=== PATIENT | male | born 1975 | race Asian ===

== ENCOUNTER 2022-08-02 09:28 | Outpatient (REF) | payer OTHER, SELFPAY ==
[2022-08-02 11:49] LABS: MANUAL DIFF FLAG NO
[2022-08-02 11:59] LABS: Basophils Absolute Auto 0.1 X10*3/uL (0.0-0.2); Eosinophils Absolute Auto 0.2 X10*3/uL (0.0-0.4); Hematocrit 44.2 % (42.0-52.0); Hemoglobin 15.6 g/dl (14.0-18.0); Imm Gran Abs Auto 0.01 X10*3/uL (0.00-0.03); Imm Gran Pct Auto 0.2 % (0.0-0.4); Lymphocytes Absolute Auto 1.9 X10*3/uL (1.2-4.9); Lymphocytes Percent Auto 31.1 % (20-40); Mean Corpuscular HGB Conc 35.3 g/dl (31.0-36.0); Mean Corpuscular Hemoglobin 31.1 pg (27.0-33.0); Mean Platelet Volume 11.9 fL (9.4-12.4); Monocytes Absolute Auto 0.5 X10*3/uL (0.1-1.2); Monocytes Percent Auto 8.7 % (2-11); Neutrophils Absolute Auto 3.4 x10*3/uL (2.0-8.3); Platelet Count 201 X10*3/uL (160-400); Red Blood Count 5.02 X10*6/uL (4.60-5.80); Red Cell Distribution Width 12.1 % (11.0-16.0)
[2022-08-02 12:21] LABS: Alanine Aminotransferase 17 U/L (0-40); Albumin Level 4.3 g/dL (3.5-5.0); Alkaline Phosphatase 50 U/L (39-117); Anion Gap 13 (12-20); Aspartate Amino Transferase 17 U/L (5-37); Bilirubin Total 0.6 mg/dL (0.0-1.0); Blood Urea Nitrogen 18 mg/dL (9-16); Calcium 9.3 mg/dL (8.4-10.2); Carbon Dioxide 29 mmol/L (22-29); Chloride 103 mmol/L (96-108); Cholesterol 227 mg/dL; Estimated Glomerular Filt Rate > 60; Glucose Fasting 106 mg/dL (60-99); HDL Cholesterol 52 mg/dL; LDL Cholesterol Calculated 157 mg/dl; Potassium 4.4 mmol/L (3.3-5.1); Sodium 141 mmol/L (135-145); Total Protein 7.3 g/dL (6.5-8.0); Triglycerides 94 mg/dL
[2022-08-06 16:51] LABS: Vitamin D 25-OH, D2 <4 ng/mL; Vitamin D 25-OH, D3 20 ng/mL; Vitamin D 25-OH, Total 20 ng/mL (30-100)
== END 2022-08-02 09:29 | disposition home or self-care (01) ==
LOC: HO.CHCLDS 09:28
PROVIDERS: Visit Provider Internal Medicine
DX: Z00.01 Encounter for general adult medical examination with abnormal findings (principal); J45.998 Other asthma; M25.562 Pain in left knee; R09.81 Nasal congestion
CPT/HCPCS: 36415; 80053; 80061; 82306; 85025

== ENCOUNTER 2022-11-30 10:34 | Outpatient (AMB) | payer OTHER, SELFPAY ==
--- NOTE | 2022-11-30 10:47 | A.OFFPC_ITS ---
Vital Signs 11/30/22 10:51 Height 5 ft 7 in Weight 138 lb BMI 21.6 BP 124/70 Blood Pressure Location Lt brachial Position Sitting Pulse 98 Pulse Source Pulse Oximeter Pulse Oximetry (%) 98 Oxygen Delivery Method Room Air Intake Visit Reasons: Neck pain (W[place] f/u 11/21) Intake Note: Pt is here today to f/u from walkin for neck pain Allergies No Known Allergies Allergy (Verified 04/29/24 16:08) Medication List - Last Reconciled 11/30/22 by Vonad Lerner MD albuterol sulfate 90 mcg/actuation (Proair Digihaler) 2 inhalations inhalation Q4-6H PRN amoxicillin-pot clavulanate 875-125 mg 1 tab PO Q12H 10 days Tobacco use date assessed: 11/30/22 HPI Neck pain (WI f/u 11/21) HPI Details Visit conducted with the help of a [place] vocational director. 48-year-old male here today for follow-u p after recent visit at the walk-in clinic, complaining of neck pain , which has been present now for the last week. Patient states that he was cleaning his house the day prior to symptoms starting. Denies any radiation of pain, no accompanying numbness or tingling in extremities, no lightheadedness. He was diagnosed to have muscular strain and prescribed cyclobenzaprine and advised to ibuprofen as needed for pain control. He now presents, however, with painful mass on posterior neck, no drainage, which just developed several days ago. PENDING SALE TO [facility] Medical History Pure hypercholesterolemia Asthma Surgical History No pertinent past surgical history Social History Housing: House Alcohol intake: never Patient Tobacco Use Status: Never used Tobacco e-Cigarette/Vaping Use: Never Used Second Hand Smoke Exposure: No service: No Current occupational status: employed Cognitive needs: No Hearing needs: No Vision needs: Yes Questionnaire AUDIT C Alcohol Use Questionnaire (AUDIT-C) 1. How often do you have a drink containing alcohol?: Never Total Score: 0 Review of Systems Const All systems reviewed & are unremarkable except as noted in HPI and below Physical exam (Primary Care) Vital Signs: Last Vital Signs Pulse 98 11/30/22 10:51 BP 124/70 11/30/22 10:51 Pulse Ox 98 11/30/22 10:51 Oxygen Delivery Method Room Air 11/30/22 10:51 BMI result Body Mass Index 21.6 Tobacco/Smoking Status: Tobacco use Status Tobacco use date assessed 11/30/22 11/30/22 10:56 e-Cigarette/Vaping Use Never Used 11/30/22 10:48 Const General: comfortable and no acute distress HENMT Head: Yes normocephalic and Yes atraumatic Neck Other: Decreased range of motion on lateral movement of cervical spine Skin Other: Soft fluctuant tender nodular mass on posterior neck area, no active drainage Assessment and Plan Assessment & Plan (1) Neck mass: Code(s): R22.1 - Localized swelling, mass and lump, neck Plan: CBC with differential ordered, will treat with amoxicillin clavulanic acid 875- 125 mg per tablet to take 1 tablet every 12 hours with food for 10 days. Apply warm compress over affected area. Advised patient to call in be seen again if lesion does not completely resolve Orders: Orders Complete Blood Count Auto Diff 11/30/22 M79.89 - Other specified soft tissue disorders Medications: New amoxicillin-pot clavulanate 875-125 mg 1 tab PO Q12H 20 tabs 0RF 10 days Coding Level of Care Code Est Pt Level 3 (06103) Diagnoses Neck mass R22.1
[2022-11-30 10:51] VITALS: BP 124/70; PULSE 98; O2SAT 98; BMI 21.6
== END 2022-11-30 11:51 | disposition home or self-care (01) ==
LOC: HO.HMGC 10:35
PROVIDERS: PCP Internal Medicine; Visit Provider Internal Medicine
DX: R22.1 Localized swelling, mass and lump, neck (principal)
CPT/HCPCS: 99499

== ENCOUNTER 2022-11-30 11:31 | Outpatient (REF) | payer OTHER, SELFPAY ==
[2022-11-30 13:57] LABS: MANUAL DIFF FLAG NO
[2022-11-30 14:16] LABS: Basophils Absolute Auto 0.1 X10*3/uL (0.0-0.2); Basophils Percent Auto 0.9 % (0-2); Eosinophils Absolute Auto 0.1 X10*3/uL (0.0-0.4); Eosinophils Percent Auto 1.4 % (0-4); Hematocrit 42.4 % (42.0-52.0); Hemoglobin 15.1 g/dl (14.0-18.0); Imm Gran Abs Auto 0.02 X10*3/uL (0.00-0.03); Imm Gran Pct Auto 0.3 % (0.0-0.4); Lymphocytes Absolute Auto 1.6 X10*3/uL (1.2-4.9); Mean Corpuscular HGB Conc 35.6 g/dl (31.0-36.0); Mean Corpuscular Hemoglobin 31.3 pg (27.0-33.0); Mean Platelet Volume 11.3 fL (9.4-12.4); Monocytes Absolute Auto 0.6 X10*3/uL (0.1-1.2); Monocytes Percent Auto 9.2 % (2-11); Neutrophils Absolute Auto 4.1 x10*3/uL (2.0-8.3); Neutrophils Percent Auto 63.2 % (45-73); Platelet Count 277 X10*3/uL (160-400); Red Blood Count 4.82 X10*6/uL (4.60-5.80); Red Cell Distribution Width 12.4 % (11.0-16.0); White Blood Count 6.5 X10*3/uL (4.8-10.8)
== END 2022-11-30 11:32 | disposition home or self-care (01) ==
LOC: HO.HMGCLDS 11:31
PROVIDERS: PCP Internal Medicine; Visit Provider Internal Medicine
DX: M79.89 Other specified soft tissue disorders (principal)
CPT/HCPCS: 36415; 85025

== ENCOUNTER 2023-01-02 15:57 | Outpatient (REF) | payer OTHER, SELFPAY ==
--- NOTE | ~2023-01-02 | XR_ITS ---
EXAMINATION: XR KNEE, LEFT CLINICAL INFORMATION: Pain. COMPARISON: None available. TECHNIQUE: Four views of the left knee. FINDINGS: Bones and soft tissues are normal. No fracture or joint effusion. Alignment is anatomic. Joint spaces are well maintained. No abnormal soft tissue calcification. XR/XR knee LT 3V IMPRESSION: Unremarkable left knee.
== END 2023-01-02 15:58 | disposition home or self-care (01) ==
LOC: HO.XRAY 15:57
PROVIDERS: PCP Internal Medicine; Visit Provider Internal Medicine
DX: M25.562 Pain in left knee (principal)
CPT/HCPCS: 73562

== ENCOUNTER → 2023-01-17 08:56 | Outpatient (BNVA) | payer OTHER, SELFPAY | PROVIDERS: PCP Internal Medicine; Referring Provider Internal Medicine; Visit Provider Surgery | DX: Z13.89 Encounter for screening for other disorder (principal) ==

== ENCOUNTER 2023-10-16 17:11 | Outpatient (AMB) | payer OTHER, SELFPAY ==
[2023-10-16 17:16] VITALS: BP 128/80; PULSE 75; O2SAT 99; BMI 22.1
--- NOTE | 2023-10-16 17:16 | A.OFFPC_ITS ---
Vital Signs 10/16/23 17:16 Height 5 ft 7 in Weight 141 lb 6 oz BMI 22.1 BP 128/80 Blood Pressure Location Lt brachial Position Sitting Pulse 75 Pulse Source Pulse Oximeter Pulse Oximetry (%) 99 Oxygen Delivery Method Room Air Intake Visit Reasons: Annual Exam Side Framer Required: No Accompanied by: Self / Same As Patient Allergies No Known Allergies Allergy (Verified 10/17/23 04:11) Medication List - Last Reconciled 10/17/23 by Sumit Vuong MD albuterol sulfate 90 mcg/actuation (Ventolin HFA) 2 puffs inhalation Q6H PRN 30 days Tobacco use date assessed: 10/16/23 Dental Screening Dental Screen Date: 10/16/23 Did you have a dental visit in the last 12 months?: Yes Did you have a dental problem in the last 6 months where you did not have access to dental care?: No Was dental information given to patient?: Patient has dentist HPI Annual Exam 2 HPI Details Patient comes in today for his annual physical examination States that he feels okay He continues to experience a clicking sensation in his left knee and states that his knee often feels like it will give out on him when he is walking Is wondering if his knee x-rays done last year showed anything to explain his symptoms He denies any headaches or dizziness Denies any chest pains, no shortness of breath - states that his asthma has been stable but he would like to get a refill on albuterol inhaler for PRN use No nausea/vomiting, no abdominal pain No change in bowel habits noted He denies any acute urinary symptoms States that he has never had a colonoscopy done in the past; is also inquiring if he needs to have an upper endoscopy done as well for screening purposes - states that he has not had any issues with acid reflux in the past Has no follow-up labs done recently [facility] Medical History Pure hypercholesterolemia Asthma Surgical History No pertinent past surgical history Social History (Updated 10/17/23 @ 04:36 by Sumit Vuong MD) Housing: House Patient Tobacco Use Status: Never used Tobacco e-Cigarette/Vaping Use: Never Used Current occupational status: employed Cognitive needs: No Hearing needs: No Vision needs: Yes Questionnaire PHQ-9 Over the last 2 weeks, how often have you been bothered by any of the following problems? 1. Little interest or pleasure in doing things: not at all 2. Feeling down, depressed, or hopeless: not at all 3. Trouble falling or staying asleep, or sleeping too much: not at all 4. Feeling tired or having little energy: not at all 5. Poor appetite or overeating: not at all 6. Feeling bad about yourself - or that you are a failure or have let yourself or your family down: not at all 7. Trouble concentrating on things, such as reading the newspaper or watching television: not at all 8. Moving or speaking so slowly that other people could have noticed. Or the opposite - being so fidgety or restless that you have been moving around a lot more than usual: not at all 9. Thoughts that you would be better off or of hurting yourself in some way: not at all Total score: 0 Depression Screening Interpretation: Negative Depression Screening Done: Yes 95424 - PHQ-9 Billing: Yes Source: Developed by Drs. Manuel Dempsey, Adele Galdamez, Prabhakar Barnes and colleagues, with an educational dick from [employer]. Thrive Questionnaire Date Thrive assessed: 10/16/23 I am a: Patient What is your living situation today?: I have a steady place to live Within the past 12 months, did the food you bought not last and you didn't have the money to get more?: Never true Within the past 12 months, did you worry whether your food would run out before you got money to buy more?: Never true Do you have trouble paying for medicines?: No Do you have trouble getting transportation to medical appointments?: No Do you have trouble paying your heating and electricity bill?: No Do you have trouble taking care of your child, family member or friend?: No Do you have trouble with day-to-day activities such as bathing, preparing meals, shopping, managing finances, etc.?: No Are you currently unemployed and looking for a job?: No Are you interested in more education?: No Please select the resources that you would like help with: None AUDIT C Alcohol Use Questionnaire (AUDIT-C) 1. How often do you have a drink containing alcohol?: Never Total Score: 0 Score Reviewed/Action Taken: Yes JULIA-7 AMB Questionnaire JULIA-7 Date JULIA - 7 assessed: 10/16/23 Feeling nervous, anxious, or on edge: 0 = Not at all Not being able to stop or control worryin = Not at all Worrying too much about different things: 0 = Not at all Trouble relaxin = Not at all Being so restless that it is hard to sit still: 0 = Not at all Becoming easily annoyed or irritable: 0 = Not at all Feeling afraid as if something awful might happen: 0 = Not at all Total JULIA-7 score (0-4 normal; 5-9 mild; 10-14 moderate; 15-21 severe): 0 Source: Developed by Drs. Manuel Dempsey, Adele Galdamez, Prabhakar Barnes and colleagues, with an educational dick from [employer]. Review of Systems Const Denies chills, Denies fatigue, Denies fever(s), Denies headache(s), Denies malaise and Denies weakness Eyes Denies blurry vision, Denies change in vision, Denies irritation and Denies itchy eyes ENT Denies dysphagia, Denies dizziness, Denies otalgia, Denies headache(s), Denies nasal congestion, Denies neck pain, Denies odynophagia and Denies sore throat Card Denies chest pain, Denies rapid heart rate, Denies irregular heart rhythm, Denies palpitations and Denies dyspnea Resp Denies chest congestion, Denies cough, Denies dyspnea and Denies wheezing GI Denies abdominal pain, Denies bloating, Denies constipation, Denies dysphagia, Denies heartburn, Denies diarrhea, Denies nausea, Denies odynophagia and Denies vomiting Denies hematuria, Denies difficulty urinating, Denies dysuria, Denies urinary frequency and Denies urinary urgency Musc Denies back pain, Denies arthralgias (but left knee frequently clicks and feels like it will give out on him), Denies joint swelling, Denies muscle weakness and Denies neck pain Skin/Breast Denies change in pigmentation, Denies lesions, Denies rash and Denies unusual bruising Neuro Denies dizziness, Denies headache(s), Denies paresthesias and Denies weakness Endo Denies fatigue and Denies palpitations Aller/Immun Denies itchy eyes and Denies wheezing Physical exam (Primary Care) Vital Signs: Last Vital Signs Pulse 75 10/16/23 17:16 BP 128/80 10/16/23 17:16 Pulse Ox 99 10/16/23 17:16 Oxygen Delivery Method Room Air 10/16/23 17:16 BMI result Body Mass Index 22.1 Tobacco/Smoking Status: Tobacco use Status Tobacco use date assessed 10/16/23 10/16/23 17:21 Patient Tobacco Use Status Never used Tobacco 10/16/23 17:21 Tobacco use type Cigarette 10/16/23 17:21 e-Cigarette/Vaping Use Never Used 10/16/23 17:21 PHQ-9: PHQ-9 Score PHQ-9: Total score 0 10/17/23 04:39 Depression Screening Interpretation: Negative Thrive Assessment: Date of Thrive Assessment Date Thrive assessed 10/16/23 10/16/23 17:21 Const General: no acute distress, alert and awake Orientation/consciousness: patient oriented x3 HENMT Head: Yes normocephalic and Yes atraumatic Ears: external ears normal, TM's normal bilaterally and EAC's normal General nose exam: No nasal discharge present Face and sinus: Yes normal facial exam and Yes sinuses nontender Teeth and gingiva: dentition normal Throat: Yes posterior oropharynx normal and Yes tonsils normal (no TP congestion) Eyes Eyelids: Yes eyelids normal Conjunctivae: conjunctivae normal Pupils: Equal, round and reactive pupils present EOM: EOMs intact bilaterally Neck Neck: Yes no lymphadenopathy and Yes supple Thyroid: Thyroid normal Resp Auscultation: clear to auscultation bilaterally, no rales and no wheezes Cardio Rate: regular rate Rhythm: regular rhythm Heart sounds: no murmurs GI Palpation (GI): Soft to palpation, nontender and No hepatosplenomegaly present Auscultation: normal bowel sounds General: Yes no CVA tenderness Back/Spine/Pelvis Back: no CVA tenderness Thoracic/Lumbar Spine: thoracic and lumbar spine normal to inspection Skin Other: (+) quarter-sized, non-tender cystic lesion on the back of the right side of the neck Lesions: no lesions Rashes: no rashes Neuro General: patient oriented x3, moves all extremities, no focal motor deficits and CN's II-XI intact bilaterally Cranial nerves: Yes Equal, round and reactive pupils present Cognition (Neuro): normal cognition Gait exam (Neuro): Normal gait present Extrem General: Yes no clubbing, cyanosis or edema Left lower extremity: knee Details: normal ROM; no tenderness and no swelling Assessment and Plan Assessment & Plan (1) Annual physical exam: Code(s): Z00.00 - Encounter for general adult medical examination without abnormal findings Plan: Check labs Patient has never had a screening colonoscopy done in the past so he will be referred for one (2) Pure hypercholesterolemia: Code(s): E78.00 - Pure hypercholesterolemia, unspecified Plan: He is again advised that his cholesterol was elevated on his labs done last year - will send him for repeat fasting lipids MADY for follow up Reinforced low cholesterol diet (3) Asthma: Code(s): J45.909 - Unspecified asthma, uncomplicated Qualifiers: Asthma complication type: uncomplicated Asthma persistence: intermittent Asthma severity: mild Qualified Code(s): J45.20 - Mild intermittent asthma, uncomplicated Plan: Stable Continue Albuterol HFA 1 to 2 inhalations Q 6 hours PRN although patient states that he hardly has to use his rescue inhaler normally (4) Neck mass: Code(s): R22.1 - Localized swelling, mass and lump, neck Plan: Is most likely a lipoma He was referred to and seen by surgery for this last year in December 2022 - was advised that they can remove the lesion surgically anytime but as patient has hardly had any symptoms related to this, have recommended observation for now and have surgical excision done only if the lipoma becomes symptomatic or gets significantly larger (5) Patellar instability of left knee: Code(s): M25.362 - Other instability, left knee Plan: X-rays of the left knee done last year came out normal Will refer patient to orthopedics for further evaluation and recommendations regarding management of his recurrent knee symptoms (6) Colon cancer screening: Code(s): Z12.11 - Encounter for screening for malignant neoplasm of colon Plan: Will refer patient for screening colonoscopy - has never had one done in the past Plan Follow up in 6 months Orders: Referrals Orthopedics Referral M25.362 - Other instability, left knee Gastroenterology Referral Z12.11 - Encounter for screening for malignant neoplasm of colon Medications: New albuterol sulfate 90 mcg/actuation (Ventolin HFA) 2 puffs inhalation Q6H 30 days PRN 8.5 grams 5RF shortness of breath or wheezing Coding Level of Care Code Est Pt Prev Care 40-64y(76653) Diagnoses Annual physical exam Z00.00 Pure hypercholesterolemia E78.00 Mild intermittent asthma without complication J45.20 Asthma complication type: uncomplicated Asthma persistence: intermittent Asthma severity: mild Neck mass R22.1 Patellar instability of left knee M25.362 Colon cancer screening Z12.11
== END 2023-10-16 17:57 | disposition home or self-care (01) ==
LOC: HO.HMGH 17:11
PROVIDERS: PCP Internal Medicine; Visit Provider Internal Medicine
DX: Z00.00 Encounter for general adult medical examination without abnormal findings (principal); E78.00 Pure hypercholesterolemia, unspecified; J45.20 Mild intermittent asthma, uncomplicated; R22.1 Localized swelling, mass and lump, neck; M25.362 Other instability, left knee; Z12.11 Encounter for screening for malignant neoplasm of colon
CPT/HCPCS: 99396

== ENCOUNTER 2023-10-23 10:47 | Outpatient (REF) | payer OTHER, SELFPAY ==
[2023-10-23 11:19] LABS: MANUAL DIFF FLAG NO
[2023-10-23 11:51] LABS: Basophils Absolute Auto 0.1 X10*3/uL (0.0-0.2); Basophils Percent Auto 1.3 % (0-2); Eosinophils Absolute Auto 0.2 X10*3/uL (0.0-0.4); Eosinophils Percent Auto 2.9 % (0-4); Hematocrit 42.6 % (42.0-52.0); Hemoglobin 15.1 g/dl (14.0-18.0); Imm Gran Abs Auto 0.01 X10*3/uL (0.00-0.03); Imm Gran Pct Auto 0.2 % (0.0-0.4); Lymphocytes Absolute Auto 1.8 X10*3/uL (1.2-4.9); Mean Corpuscular HGB Conc 35.4 g/dl (31.0-36.0); Mean Corpuscular Hemoglobin 31.3 pg (27.0-33.0); Mean Corpuscular Volume 88.2 fL (80.0-98.0); Mean Platelet Volume 12.1 fL (9.4-12.4); Monocytes Absolute Auto 0.5 X10*3/uL (0.1-1.2); Monocytes Percent Auto 8.8 % (2-11); Neutrophils Absolute Auto 3.1 x10*3/uL (2.0-8.3); Neutrophils Percent Auto 54.8 % (45-73); Platelet Count 175 X10*3/uL (160-400); Red Blood Count 4.83 X10*6/uL (4.60-5.80); Red Cell Distribution Width 12.3 % (11.0-16.0); White Blood Count 5.6 X10*3/uL (4.8-10.8)
[2023-10-23 12:23] LABS: Prostate Specific Antigen Scr 0.92 ng/mL (<0.05-4.0)
[2023-10-23 12:48] LABS: Alanine Aminotransferase 20 U/L (0-40); Albumin Level 4.1 g/dL (3.5-5.0); Alkaline Phosphatase 48 U/L (39-117); Anion Gap 11 (12-20); Aspartate Amino Transferase 17 U/L (5-37); Bilirubin Total 0.7 mg/dL (0.0-1.0); Blood Urea Nitrogen 15 mg/dL (9-16); Calcium 9.1 mg/dL (8.4-10.2); Carbon Dioxide 30 mmol/L (22-29); Chloride 104 mmol/L (96-108); Cholesterol 214 mg/dL (<200); Estimated Glomerular Filt Rate > 60; Glucose Fasting 100 mg/dL (60-99); HDL Cholesterol 58 mg/dL (>40); LDL Cholesterol Calculated 145 mg/dL (<100); Potassium 4.4 mmol/L (3.3-5.1); Sodium 141 mmol/L (135-145); TSH reflex Free T4 1.07 uIU/mL (0.32-4.0); Triglycerides 59 mg/dL (<150); Vitamin D 25-OH Total 25.3 ng/mL (>30)
[2023-10-23 12:54] LABS: Appearance Urine Clear; Color Urine Yellow; Glucose Urine UA Negative (Negative); Leukocyte Esterase Urine Negative (Negative); Nitrite Urine Negative (Negative); PH 8.5 (5.0-9.0); Specific Gravity - Urine 1.015 (1.005-1.025); Urine Blood Negative (Negative); Urine Ketones Negative (Negative); Urine Protein Negative (Neg-Trace)
== END 2023-10-23 10:48 | disposition home or self-care (01) ==
LOC: HO.LAB 10:47
PROVIDERS: PCP Internal Medicine; Visit Provider Internal Medicine
DX: Z00.00 Encounter for general adult medical examination without abnormal findings (principal); Z12.5 Encounter for screening for malignant neoplasm of prostate; R30.0 Dysuria; E55.9 Vitamin D deficiency, unspecified; E78.00 Pure hypercholesterolemia, unspecified
CPT/HCPCS: 36415; 80053; 80061; 81003; 82306; 84153; 84443; 85025

== ENCOUNTER 2024-04-29 14:27 | Outpatient (AMB) | payer OTHER, SELFPAY ==
--- NOTE | 2024-04-29 14:27 | MHC.PC.OV ---
Vital Signs 04/29/24 14:28 Height 5 ft 7 in Weight 138 lb BMI 21.6 BP 110/66 Blood Pressure Location Lt brachial Position Sitting Pulse 62 Pulse Source Pulse Oximeter Pulse Oximetry (%) 97 Oxygen Delivery Method Room Air Intake Visit Reasons: Bloody Nose Intake Note: Patient is here to follow up on Bloody nose on going for a year, mostly during winter time. Strap Sewer Required: No Director Transportation: Not Required per policy Accompanied by: Self / Same As Patient Allergies No Known Allergies Allergy (Verified 04/29/24 16:08) Medication List - Last Reconciled 04/29/24 by Sumit Vuong MD No Known Home Meds Tobacco use date assessed: 04/29/24 Dental Screening Dental Screen Date: 10/16/23 HPI Bloody Nose HPI Details Patient comes in today for further evaluation of recurrent nose bleeding from his right nostril States that his symptoms are often worse in the winter time, when he would literally wake up in the morning with bleeding from his right nostril Notes that his nose bleeds would usually last for just a few minutes before subsiding on their own Notes that he feels like there is something inside his right nostril as he would often have pressure-like sensation deep inside the right side of his nose He denies any headaches or dizziness No other acute complaints or issues are noted [facility] Medical History Pure hypercholesterolemia Asthma Surgical History No pertinent past surgical history Social History Housing: House Alcohol intake: never Patient Tobacco Use Status: Never used Tobacco e-Cigarette/Vaping Use: Never Used Second Hand Smoke Exposure: No service: No Current occupational status: employed Cognitive needs: No Hearing needs: No Vision needs: Yes Questionnaire Thrive Questionnaire Date Thrive assessed: 10/16/23 JULIA-7 AMB Questionnaire JULIA-7 Date JULIA - 7 assessed: 10/16/23 Source: Developed by Drs. Manuel Dempsey, Adele Galdamez, Prabhakar Barnes and colleagues, with an educational dick from [employer]. Review of Systems Const Denies chills, Denies fatigue, Denies fever(s) and Denies headache(s) ENT Denies dysphagia, Denies dizziness, Denies otalgia, Denies headache(s), Reports epistaxis (mostly from the right nostril, occurring more often in the winter - see HPI), Reports nasal congestion (frequent), Denies neck pain, Denies odynophagia, Denies sinus pain and Denies sore throat Card Denies chest pain, Denies palpitations and Denies dyspnea Resp Denies cough and Denies dyspnea GI Denies abdominal pain, Denies constipation, Denies dysphagia, Denies diarrhea, Denies nausea, Denies odynophagia and Denies vomiting Denies dysuria, Denies nocturia and Denies urinary frequency Musc Denies back pain and Denies neck pain Skin/Breast Denies rash Neuro Denies dizziness and Denies headache(s) Endo Denies fatigue and Denies palpitations Physical exam (Primary Care) Vital Signs: Last Vital Signs Pulse 62 04/29/24 14:28 BP 110/66 04/29/24 14:28 Pulse Ox 97 04/29/24 14:28 Oxygen Delivery Method Room Air 04/29/24 14:28 BMI result Body Mass Index 21.6 Tobacco/Smoking Status: Tobacco use Status Tobacco use date assessed 04/29/24 04/29/24 14:32 Patient Tobacco Use Status Never used Tobacco 04/29/24 14:32 Tobacco use type 10/23/23 10:47 e-Cigarette/Vaping Use Never Used 04/29/24 14:32 Thrive Assessment: Date of Thrive Assessment Date Thrive assessed 10/16/23 04/29/24 14:32 Const General: no acute distress and alert HENMT Ears: TM's normal bilaterally and EAC's normal General nose exam: Abnormal mucous membranes and turbinates present erythematous on the right Face and sinus: Yes sinuses nontender and Yes face symmetric Throat: Yes posterior oropharynx normal and Yes tonsils normal (no TP congestion) Neck Neck: Yes no lymphadenopathy and Yes supple Thyroid: Thyroid normal Resp Auscultation: clear to auscultation bilaterally, no rales and no wheezes Cardio Rate: regular rate Rhythm: regular rhythm Heart sounds: no murmurs GI Palpation (GI): Soft to palpation and nontender Auscultation: normal bowel sounds Extrem General: Yes no clubbing, cyanosis or edema Assessment and Plan Assessment & Plan (1) Recurrent epistaxis: Code(s): R04.0 - Epistaxis Plan: Have advised patient that his recurrent right-sided epistaxis is likely due to his chronic sinus allergies He does have chronic nasal /sinus congestion and has been prescribed steroid nasal sprays (Fluticasone) as well as oral antihistamines in the past with variable results / relief of his symptoms His exam today revealed (+) possible erythema and some congestion of the right nasal turbinates but have explained to him that our exam is basically a crude and rudimentary exam as we do not really have any dedicated nasal speculum or nasal endoscope to properly examine his nasal passages He does not appear to have any visible polyps at this time Due to his recurrent symptoms, I have recommended that he see ENT for further evaluation and management and to definitively r/o nasal polyps or other conditions that would increase his risks for recurrent epistaxis now and especially in the winter time Have advised him that he can continue on his nasal steroid spray and OTC oral antihistamines for now if he wants Plan To return as scheduled in October 2024 for his next annual physical examination Orders: Referrals Ear/Nose/Throat Referral R04.0 - Epistaxis Coding Level of Care Code Est Pt Level 3 (01769) Diagnoses Recurrent epistaxis R04.0
[2024-04-29 14:28] VITALS: BP 110/66; PULSE 62; O2SAT 97; BMI 21.6
== END 2024-04-29 15:14 | disposition home or self-care (01) ==
PROVIDERS: PCP Internal Medicine; Visit Provider Internal Medicine
DX: R04.0 Epistaxis (principal)
CPT/HCPCS: 99213

== ENCOUNTER 2024-10-21 13:36 | Outpatient (AMB) | payer OTHER, SELFPAY ==
[2024-10-21 13:50] VITALS: BP 100/76; PULSE 68; TEMP 36.2; O2SAT 96; BMI 22.1
--- NOTE | 2024-10-21 13:50 | MHC.PC.OV ---
Vital Signs 10/21/24 13:50 Height 5 ft 7 in Weight 141 lb 4 oz BMI 22.1 BP 100/76 Blood Pressure Location Lt brachial Position Sitting Pulse 68 Pulse Source Pulse Oximeter Temp 97.1 F Temp Source Temporal Artery Scan Pulse Oximetry (%) 96 Oxygen Delivery Method Room Air Intake Visit Reasons: pe Terminal Clerk Required: No Accompanied by: Self / Same As Patient Allergies No Known Allergies Allergy (Verified 10/21/24 14:10) Medication List - Last Reconciled 10/21/24 by Sumit Vuong MD No Known Home Meds Tobacco use date assessed: 10/21/24 Dental Screening Dental Screen Date: 10/21/24 Did you have a dental visit in the last 12 months?: Yes Did you have a dental problem in the last 6 months where you did not have access to dental care?: No Was dental information given to patient?: Patient has dentist HPI pe HPI Details Patient comes in today for his annual physical examination States that he feels okay He denies any headaches or dizziness States that he still has recurrent nasal drainage and congestion and is wondering if his right nasal polyps have gotten bigger lately States that he no longer has recurrent epistaxis like he used to have a few months ago He was referred to ENT previously for further evaluation and is scheduled to be seen in November 2024 He denies any chest pains, no SOB - states that his asthma is mostly well-controlled but he does not have any more Albuterol inhaler refills and needs Rx sent in today No nausea/vomiting, no abdominal pain No change in bowel habits noted He denies any acute urinary symptoms He was referred for screening colonoscopy last year but it does not look like he was ever seen by GI for this [facility] Medical History (Updated 10/21/24 @ 14:38 by Sumit Vuong MD) Patellar instability of left knee Vitamin D deficiency Pure hypercholesterolemia Asthma Surgical History No pertinent past surgical history Social History Housing: House Alcohol intake: never Patient Tobacco Use Status: Never used Tobacco e-Cigarette/Vaping Use: Never Used Second Hand Smoke Exposure: No service: No Current occupational status: employed Cognitive needs: No Hearing needs: No Vision needs: Yes Questionnaire PHQ-9 Over the last 2 weeks, how often have you been bothered by any of the following problems? 1. Little interest or pleasure in doing things: not at all 2. Feeling down, depressed, or hopeless: not at all 3. Trouble falling or staying asleep, or sleeping too much: not at all 4. Feeling tired or having little energy: not at all 5. Poor appetite or overeating: not at all 6. Feeling bad about yourself - or that you are a failure or have let yourself or your family down: not at all 7. Trouble concentrating on things, such as reading the newspaper or watching television: not at all 8. Moving or speaking so slowly that other people could have noticed. Or the opposite - being so fidgety or restless that you have been moving around a lot more than usual: not at all 9. Thoughts that you would be better off or of hurting yourself in some way: not at all Total score: 0 Depression Screening Interpretation: Negative Depression Screening Done: Yes 96366 - PHQ-9 Billing: Yes Source: Developed by Drs. Manuel Dempsey, Adele Galdamez, Prabhakar Barnes and colleagues, with an educational dick from [email or web address]. Thrive Questionnaire Date Thrive assessed: 10/21/24 I am a: Patient What is your living situation today?: I have a steady place to live Within the past 12 months, did the food you bought not last and you didn't have the money to get more?: I choose not to answer this question Within the past 12 months, did you worry whether your food would run out before you got money to buy more?: I choose not to answer this question Do you have trouble paying for medicines?: No Do you have trouble getting transportation to medical appointments?: No Do you have trouble paying your heating and electricity bill?: No Do you have trouble taking care of your child, family member or friend?: No Do you have trouble with day-to-day activities such as bathing, preparing meals, shopping, managing finances, etc.?: No Are you currently unemployed and looking for a job?: No Are you interested in more education?: I choose not to answer this question Please select the resources that you would like help with: None Currently or been in a relationship where the following occur: No concerns reported THRIVE Score: 0 AUDIT C Alcohol Use Questionnaire (AUDIT-C) 1. How often do you have a drink containing alcohol?: Never 3. How often do you have six or more drinks on one occasion?: Never Total Score: 0 Score Reviewed/Action Taken: Yes JULIA-7 AMB Questionnaire JULIA-7 Date JULIA - 7 assessed: 10/21/24 Feeling nervous, anxious, or on edge: 0 = Not at all Not being able to stop or control worryin = Not at all Worrying too much about different things: 0 = Not at all Trouble relaxin = Not at all Being so restless that it is hard to sit still: 0 = Not at all Becoming easily annoyed or irritable: 0 = Not at all Feeling afraid as if something awful might happen: 0 = Not at all Total JULAI-7 score (0-4 normal; 5-9 mild; 10-14 moderate; 15-21 severe): 0 Source: Developed by Drs. Manuel Dempsey, Adele Galdamez, Prabhakar Barnes and colleagues, with an educational dick from [email or web address]. Review of Systems Const Denies chills, Denies fatigue, Denies fever(s), Denies headache(s), Denies malaise and Denies weakness Eyes Denies blurry vision, Denies change in vision, Denies irritation and Denies itchy eyes ENT Denies dysphagia, Denies dizziness, Denies otalgia, Denies headache(s), Denies epistaxis (states that his previous recurrent epistaxis has resolved), Reports nasal congestion (recurrent, especially in the right nostril), Denies neck pain, Denies odynophagia and Denies sore throat Card Denies chest pain, Denies rapid heart rate, Denies irregular heart rhythm, Denies palpitations and Denies dyspnea Resp Denies chest congestion, Denies cough, Denies dyspnea and Denies wheezing GI Denies abdominal pain, Denies bloating, Denies constipation, Denies dysphagia, Denies heartburn, Denies diarrhea, Denies nausea, Denies odynophagia and Denies vomiting Denies hematuria, Denies difficulty urinating, Denies dysuria, Denies urinary frequency and Denies urinary urgency Musc Denies back pain, Reports arthralgias (recurrent in the left knee, mostly after prolonged standing), Denies joint swelling, Denies muscle weakness, Denies neck pain and Reports tingling (in the left foot at times, often with prolonged standing) Skin/Breast Denies change in pigmentation, Denies lesions, Denies rash and Denies unusual bruising Neuro Denies dizziness, Denies headache(s), Reports tingling (in the left foot at times, often with prolonged standing), Denies paresthesias and Denies weakness Endo Denies fatigue and Denies palpitations Aller/Immun Denies itchy eyes and Denies wheezing Physical exam (Primary Care) Vital Signs: Last Vital Signs Temp 97.1 F 10/21/24 13:50 Pulse 68 10/21/24 13:50 BP 100/76 10/21/24 13:50 Pulse Ox 96 10/21/24 13:50 Oxygen Delivery Method Room Air 10/21/24 13:50 BMI result Body Mass Index 22.1 Tobacco/Smoking Status: Tobacco use Status Tobacco use date assessed 10/21/24 10/21/24 13:53 Patient Tobacco Use Status Never used Tobacco 10/21/24 13:53 Tobacco use type 10/23/23 10:47 e-Cigarette/Vaping Use Never Used 10/21/24 13:53 PHQ-9: PHQ-9 Score PHQ-9: Total score 0 10/21/24 22:09 Depression Screening Interpretation: Negative Thrive Assessment: Date of Thrive Assessment Date Thrive assessed 10/21/24 10/21/24 13:53 Currently or been in a relationship where the following occur: No concerns reported Const General: no acute distress, alert and awake Orientation/consciousness: patient oriented x3 HENMT Head: Yes normocephalic and Yes atraumatic Ears: external ears normal, TM's normal bilaterally and EAC's normal General nose exam: No nasal discharge present and Abnormal mucous membranes and turbinates present erythematous bilateral Face and sinus: Yes normal facial exam and Yes sinuses nontender Teeth and gingiva: dentition normal Throat: Yes posterior oropharynx normal and Yes tonsils normal (no TP congestion) Eyes Eyelids: Yes eyelids normal Conjunctivae: conjunctivae normal Pupils: Equal, round and reactive pupils present EOM: EOMs intact bilaterally Neck Neck: Yes supple and No lymphadenopathy Thyroid: Thyroid normal Resp Auscultation: clear to auscultation bilaterally, no rales and no wheezes Cardio Rate: regular rate Rhythm: regular rhythm Heart sounds: no murmurs GI Palpation (GI): Soft to palpation, nontender and No hepatosplenomegaly present Auscultation: normal bowel sounds General: Yes no CVA tenderness Back/Spine/Pelvis Back: no CVA tenderness Thoracic/Lumbar Spine: thoracic and lumbar spine normal to inspection Skin Lesions: no lesions Rashes: no rashes Neuro General: patient oriented x3, moves all extremities, no focal motor deficits and CN's II-XI intact bilaterally Cranial nerves: Yes Equal, round and reactive pupils present Cognition (Neuro): normal cognition Gait exam (Neuro): Normal gait present Extrem General: Yes no clubbing, cyanosis or edema Left lower extremity: knee Details: tenderness Location: of the patella and of the pre-patellar area; no swelling Coding Level of Care Code Est Pt Prev Care 40-64y(15722) Diagnoses Annual physical exam Z00.00 Pure hypercholesterolemia E78.00 Mild intermittent asthma without complication J45.20 Asthma severity: mild Asthma persistence: intermittent Asthma complication type: uncomplicated Vitamin D deficiency E55.9 Patellar instability of left knee M25.362 Chronic nasal congestion R09.81 Colon cancer screening Z12.11 Additional Codes PHQ-9 - 33454 - PHQ-9 Billing: Yes ([id number]) Assessment & Plan Assessment & Plan (1) Annual physical exam: Code(s): Z00.00 - Encounter for general adult medical examination without abnormal findings Category: Medical Plan: Check labs (2) Pure hypercholesterolemia: Code(s): E78.00 - Pure hypercholesterolemia, unspecified Category: Medical Plan: Patient is reminded that his cholesterol levels were still elevated when he had his labs done back in October 2023, with total cholesterol at 214 mg/dl and LDL cholesterol at 145 mg/dl Reinforced low cholesterol diet Will send him for repeat fasting lipids and follow up labs MADY (3) Asthma: Code(s): J45.909 - Unspecified asthma, uncomplicated Category: Medical Qualifiers: Asthma severity: mild Asthma persistence: intermittent Asthma complication type: uncomplicated Qualified Code(s): J45.20 - Mild intermittent asthma, uncomplicated Plan: Stable Continue Albuterol HFA 1 to 2 inhalations Q 6 hours PRN (Rx refilled) - patient states that he rarely has to use his rescue inhaler (4) Vitamin D deficiency: Code(s): E55.9 - Vitamin D deficiency, unspecified Category: Medical Plan: Continue Vitamin D3 2000 units QD Will recheck his Vitamin D level for follow up (5) Patellar instability of left knee: Code(s): M25.362 - Other instability, left knee Category: Medical Plan: X-rays of patient's left knee done back in December 2022 came out normal He was provided with some instructions/information on knee exercises that he can do regularly to help strengthen his knee (and muscles) to help minimize his knee pain and related symptoms Follow up with orthopedics as scheduled (6) Chronic nasal congestion: Code(s): R09.81 - Nasal congestion Category: Medical Plan: He was previously referred to ENT for further evaluation of his recurrent epistaxis and chronic nasal congestion and he is scheduled to be seen sometime in November 2024 Patient states that his epistaxis has resolved and he has not had any nose bleeds for a few weeks/months now (7) Colon cancer screening: Code(s): Z12.11 - Encounter for screening for malignant neoplasm of colon Category: Medical Plan: Will refer patient again to GI for his screening colonoscopy Plan To return in 1 year for his next annual physical examination Orders: Orders TSH reflex Free T4 Today E78.00 - Pure hypercholesterolemia, unspecified, Z00.00 - Encounter for general adult medical examination without abnormal findings UA CC w/rflx Micro + Cult Today R30.0 - Dysuria, Z00.00 - Encounter for general adult medical examination without abnormal findings Vitamin B12 and Folate Today E53.8 - Deficiency of other specified B group vitamins, R20.0 - Anesthesia of skin, R20.2 - Paresthesia of skin Magnesium Today E83.42 - Hypomagnesemia, R20.0 - Anesthesia of skin, R20.2 - Paresthesia of skin Complete Blood Count Auto Diff Today D64.9 - Anemia, unspecified, Z00.00 - Encounter for general adult medical examination without abnormal findings Comprehensive [place]. Panel Fast Today E78.00 - Pure hypercholesterolemia, unspecified, Z00.00 - Encounter for general adult medical examination without abnormal findings Lipid Panel Today E78.00 - Pure hypercholesterolemia, unspecified, Z00.00 - Encounter for general adult medical examination without abnormal findings Vitamin D 25-OH Total Today E55.9 - Vitamin D deficiency, unspecified, Z00.00 - Encounter for general adult medical examination without abnormal findings Prostate Specific Antigen Scr Today Z00.00 - Encounter for general adult medical examination without abnormal findings Referrals Gastroenterology Referral Z12.11 - Encounter for screening for malignant neoplasm of colon Medications: New albuterol sulfate 90 mcg/actuation (Ventolin HFA) 2 puffs inhalation Q6H 30 days PRN 8.5 grams 5RF shortness of breath or wheezing
== END 2024-10-21 14:35 | disposition home or self-care (01) ==
PROVIDERS: PCP Internal Medicine; Visit Provider Internal Medicine
DX: Z00.00 Encounter for general adult medical examination without abnormal findings (principal); E78.00 Pure hypercholesterolemia, unspecified; J45.20 Mild intermittent asthma, uncomplicated; E55.9 Vitamin D deficiency, unspecified; M25.362 Other instability, left knee; R09.81 Nasal congestion; Z12.11 Encounter for screening for malignant neoplasm of colon

== ENCOUNTER → 2024-10-21 13:36 | Outpatient (BNVA) | payer OTHER, SELFPAY | PROVIDERS: PCP Internal Medicine; Visit Provider Internal Medicine | DX: Z00.00 Encounter for general adult medical examination without abnormal findings (principal); E78.00 Pure hypercholesterolemia, unspecified; J45.20 Mild intermittent asthma, uncomplicated; E55.9 Vitamin D deficiency, unspecified; M25.362 Other instability, left knee; R09.81 Nasal congestion | CPT/HCPCS: 96127 ==

== ENCOUNTER 2024-12-30 10:55 | Outpatient (REF) | payer OTHER, SELFPAY ==
[2024-12-30 11:11] LABS: MANUAL DIFF FLAG NO
[2024-12-30 11:30] LABS: Basophils Absolute Auto 0.1 X10*3/uL (0.0-0.2); Basophils Percent Auto 1.1 % (0-2); Eosinophils Absolute Auto 0.2 X10*3/uL (0.0-0.4); Hemoglobin 15.5 g/dl (14.0-18.0); Imm Gran Abs Auto 0.01 X10*3/uL (0.00-0.03); Imm Gran Pct Auto 0.2 % (0.0-0.4); Lymphocytes Absolute Auto 1.9 X10*3/uL (1.2-4.9); Lymphocytes Percent Auto 33.7 % (20-40); Mean Corpuscular Hemoglobin 31.3 pg (27.0-33.0); Mean Corpuscular Volume 86.7 fL (80.0-98.0); Mean Platelet Volume 11.5 fL (9.4-12.4); Monocytes Absolute Auto 0.6 X10*3/uL (0.1-1.2); Monocytes Percent Auto 10.5 % (2-11); Neutrophils Absolute Auto 2.9 x10*3/uL (2.0-8.3); Neutrophils Percent Auto 51.5 % (45-73); Platelet Count 189 X10*3/uL (160-400); Red Blood Count 4.96 X10*6/uL (4.60-5.80); Red Cell Distribution Width 12.1 % (11.0-16.0); White Blood Count 5.6 X10*3/uL (4.8-10.8)
[2024-12-30 11:57] LABS: Appearance Urine Clear; Color Urine Yellow; Glucose Urine UA Negative (Negative); Leukocyte Esterase Urine Negative (Negative); Nitrite Urine Negative (Negative); PH 8.5 (5.0-9.0); Specific Gravity - Urine 1.015 (1.005-1.025); Urine Blood Negative (Negative); Urine Ketones Negative (Negative); Urine Protein Negative (Neg-Trace)
[2024-12-30 12:21] LABS: Alanine Aminotransferase 24 U/L (0-40); Alkaline Phosphatase 46 U/L (39-117); Anion Gap 9 (12-20); Aspartate Amino Transferase 22 U/L (5-37); Bilirubin Total 0.8 mg/dL (0.0-1.0); Blood Urea Nitrogen 17 mg/dL (9-16); Calcium 8.7 mg/dL (8.4-10.2); Carbon Dioxide 32 mmol/L (22-29); Chloride 105 mmol/L (96-108); Cholesterol 225 mg/dL (<200); Estimated Glomerular Filt Rate > 60; Glucose Fasting 101 mg/dL (60-99); HDL Cholesterol 56 mg/dL (>40); LDL Cholesterol Calculated 153 mg/dL (<100); Magnesium 2.3 mg/dL (1.6-2.6); Potassium 4.2 mmol/L (3.3-5.1); Sodium 142 mmol/L (135-145); Triglycerides 84 mg/dL (<150)
--- OUTSIDE RECORDS SUMMARY | 2024-12-30 12:24 | XMS_ITS | Clinical Summary ---
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 Name Role Phone Unavailable Primary Care Provider Unavailabl e Social History Tobacco Use Types Packs/Day Years Used Date Smoking Tobacco: Never Assessed Sex and Gender Information Value Date Recorded Sex Assigned at Male 08/01/2022 10:23 AM EDT Legal Sex Male 10:23 AM EDT Gender Identity Male 08/01/2022 10:23 AM EDT Sexual Orientation Straight 08/01/2022 10 :23 AM EDT Plan of Treatment Health Maintenance Due Date Last Done Comments CT Colonography 1974 Colonoscopy 1974 Colorectal Cancer Screening 1974 Depression Screening 1974 FIT DNA/Cologuard 1974 FIT 1974 FOBT 1974 Lipid Panel 1974 Sigmoidoscopy 1974 Alcohol/Substance Use Screening 1986 Tobacco Screening 1986 Family Planning (PISQ) 1989 Hepatitis B Vaccines (1 of 3 - 19+ 3-dose series) 1993 DTaP/Tdap/Td Vaccines (1 - Tdap) 06/27/2017 06/26/2017 COVID-19 Vaccine ( - 2023-2 5 season) 2024 Influenza Vaccine (#1) 2024 9, 09/03/2018, 06/26/2017 Pneumococcal Vaccine: 50+ Years (1 of 1 - PCV) 2024 Zoster Vaccines (1 of 2) 2024 RSV Patients and Patients Aged 60 years or older (1 - 1-dose 75+ series) 2049 HIB Vaccines Aged Out No longer eligi ble based on patient's age to complete this topic HPV Vaccines Aged Out No longer eligi ble based on patient's age to complete this topic Hepatitis A Vaccines Aged Out No long er eligible based on patient's age to complete this topic IPV Vaccines Aged Out No longer eligi ble based on patient's age to complete this topic Meningococcal Vaccine Aged Out No gabriel tresa eligible based on patient's age to complete this topic Pneumococcal Vaccine: Pediatrics (0 to 5 Years) and At-Risk Patients (6 to 49) Years) Aged Out No longer eligible b ased on patient's age to complete this topic RSV under 20 months Aged Out No longe r eligible based on patient's age to complete this topic Rotavirus Vaccines Aged Out No longer eligible based on patient's age to complete this topic
--- OUTSIDE RECORDS SUMMARY | 2024-12-30 12:24 | XMS_ITS | Encounter Summary ---
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 Name Role Phone Unavailable Primary Care Provider Unavailabl e Encounter Details Date Type Department Care Team (Latest Contact Info) Description 02/26/2019 Abstract [facility] CONVERSIONS Dental, Provider, DDS Social History Tobacco Use Types Packs/Day Years Used Date Smoking Tobacco: Never Assessed Sex and Gender Information Value Date Recorded Sex Assigned at Male 08/01/2022 10:23 AM EDT Legal Sex Male 10:23 AM EDT Gender Identity Male 08/01/2022 10:23 AM EDT Sexual Orientation Straight 08/01/2022 10 :23 AM EDT documented as of this encounter Plan of Treatment Not on file documented as of this encounter Visit Diagnoses Not on filedocumented in this encounter
[2024-12-30 12:37] LABS: TSH reflex Free T4 1.04 uIU/mL (0.32-4.0); Vitamin D 25-OH Total 35.4 ng/mL (>30)
[2024-12-30 12:48] LABS: Folate 9.7 ng/mL (> or = 4.0); Vitamin B12 711 pg/mL (200-900)
== END 2024-12-30 10:56 | disposition home or self-care (01) ==
LOC: HO.LAB 10:55
PROVIDERS: PCP Internal Medicine; Visit Provider Internal Medicine
DX: Z00.00 Encounter for general adult medical examination without abnormal findings (principal); R30.0 Dysuria; E53.8 Deficiency of other specified B group vitamins; R20.0 Anesthesia of skin; R20.2 Paresthesia of skin; E78.00 Pure hypercholesterolemia, unspecified; E55.9 Vitamin D deficiency, unspecified; E83.42 Hypomagnesemia; D64.9 Anemia, unspecified; Z12.5 Encounter for screening for malignant neoplasm of prostate
CPT/HCPCS: 36415; 80053; 80061; 81003; 82306; 82607; 82746; 83735; 84153; 84443; 85025

== ENCOUNTER 2025-02-26 08:19 | Outpatient (AMB) | payer OTHER, SELFPAY ==
--- NOTE | 2025-02-26 08:20 | MHC.OFFWIV ---
Intake Vital Signs 02/26/25 08:21 Height 5 ft 7 in Weight 141 lb BMI 22.1 BP 110/70 Blood Pressure Location Lt brachial Position Sitting Pulse 68 Pulse Source Pulse Oximeter Temp 98.2 F Temp Source Oral Pulse Oximetry (%) 98 Oxygen Delivery Method Room Air Intake Visit Reasons: EP asthma, itchy throat Patient Tobacco Use Status: Never used Tobacco Assistant Professor Of Spanish Required: Yes Assistant Professor Of Spanish Language: Mandarin [place]ian Accompanied by: Self / Same As Patient Allergies No Known Allergies Allergy (Verified 02/26/25 08:21) Do you need a note to return to daycare/school/sports/work: No HPI HPI Comments History of Present Illness Details [place] Michael Bieker video park interpreter used for this visit. History - The patient is a 49-year-old male presenting with his son with a sore throat, sneezing, and itchy, watery eyes. - The sore throat has been present for a couple of weeks - Symptoms include sneezing and itchy, watery eyes, indicative of allergic rhinitis. - The patient has a known history of asthma, with albuterol inhaler use for relief during shortness of breath. - No fever has been reported. - Symptoms seem related to seasonal changes, suggesting exacerbation of allergies. Physical Exam General: Cooperative, healthy appearing, comfortable and no acute distress Orientation/consciousness: Patient oriented x3 Limitations: No limitations Head: Normal to inspection Ears: Hearing grossly normal bilaterally, external ears normal and TM's normal bilaterally Nose: Normal external nose present, Normal nares present and No nasal discharge present Face and sinus: Normal facial exam and Yes sinuses nontender Mouth: Normal oral and palatal mucosa present and moist mucous membranes Throat: Yes tonsils normal, Yes uvula midline. Posterior oropharynx erythema with cobblestoning Eyes: Appearance normal, both eyes and all related structures Neck: Normal visual inspection Respiratory: Clear to auscultation bilaterally. Normal respiratory effort, able to speak in complete sentences, Actively coughing, no respiratory distress, not tachypneic, no tripod positioning and no use of accessory muscles. History of asthma, uses an albuterol inhaler with relief, little bit of shortness of breath Cardiovascular: Regular rate and rhythm. Normal S1 and S2 Skin: No rashes or lesions noted Neuro: Patient oriented x3 Extremities: Normal to inspection and Yes no clubbing, cyanosis or edema [facility] Medical History (Updated 02/26/25 @ 09:12 by Leena Canales PA-C) Patellar instability of left knee Vitamin D deficiency Pure hypercholesterolemia Asthma Surgical History No pertinent past surgical history Social History Housing: House Alcohol intake: never Patient Tobacco Use Status: Never used Tobacco e-Cigarette/Vaping Use: Never Used Second Hand Smoke Exposure: No service: No Current occupational status: employed Cognitive needs: No Hearing needs: No Vision needs: Yes Review of Systems Const All systems reviewed & are unremarkable except as noted in HPI and below Physical Exam Vital Signs: Last Vital Signs Temp 98.2 F 02/26/25 08:21 Pulse 68 02/26/25 08:21 BP 110/70 02/26/25 08:21 Pulse Ox 98 02/26/25 08:21 Oxygen Delivery Method Room Air 02/26/25 08:21 BMI result Body Mass Index 22.1 Results AMB Rapid Strep AMB Rapid Strep Negative Last Edit by Con Islas CMA on 02/26/25 08:40 Results Reviewed Results Reviewed: Laboratory Last Values Strep Scn Rapid Clinic Negative 02/26/25 08:39 Assessment & Plan Assessment & Plan (1) Seasonal allergic reaction: Code(s): J30.2 - Other seasonal allergic rhinitis Plan: VSS, pt well appearing and PE remarkable for cobblestoning. Negative result for streptococcal infection. The patient presents with symptoms indicative of seasonal allergic rhinitis, and a seasonal allergy pill is recommended to manage the sore/itchy throat, itchy, watery eyes and sneezing. The symptoms correlate with seasonal changes, suggesting allergies as the primary cause. The patient should monitor the response to the allergy medication and continue using the albuterol inhaler as needed for asthma management. Observing symptom changes and seeking follow-up if necessary is advised for ongoing evaluation and care. Patient was informed and verbally consented to the use of an ambient scribe for clinic note documentation during this visit Orders: Orders AMB Rapid Strep Screen Today Z13.9 - Encounter for screening, unspecified Coding Level of Care Code Est Pt Level 3 (23331) Diagnoses Seasonal allergic reaction J30.2
[2025-02-26 08:21] VITALS: BP 110/70; PULSE 68; TEMP 36.8; O2SAT 98; BMI 22.1
--- OUTSIDE RECORDS SUMMARY | 2025-02-26 08:33 | XMS_ITS | Data Portability ---
Author Organization [place] [facility], Allergy Address [address] [facility] [address] [place] [id number] Assessment Encounter Date Assessment Date Assessment LastModified by Organization Details LastModified Time 12/23/2024 12/23/2024 Primary care noted a polyp on the right nose. On my examination anterior rhinoscopy was benign. No lesions to better explain his epistaxis or confirmation of a polyp. Given the description of his symptoms and nasal endoscopy was performed to evaluate for any additional causes of fluctuating nasal congestion and epistaxis. Fortunately only a grade 1 nasal polyp in the left sphenoethmoid region was identified. It had a normal benign appearance consistent with polyp. Recommend he continue use of topical nasal steroid such as Flonase which is [id number] . His epistaxis apparently began after he bumped his nose and it is most likely from mild trauma. Encouraged him to use nasal saline which she has at home [email or web address] Not available 12/23/2024 13:15:35 Plan of Treatment Reminders Order Date Submit Date Provider Last Modified By Organization Details Last Modified Time Details Appointments None record ed. Lab None record ed. Referral None record ed. Procedures None record ed. Surgeries None record ed. Imaging None record ed. Medication Orders None record ed. Patient TargetsNo targets recorded. Patient InstructionsNo instructions recorded. Reason for Referral None Reported. Problems Name Problem SNOMED Code Status Onset Date Resolution Date Notes Provider Name and Address Organization Details Recorded Time Polyp of nasal cavity 572653322 Active 025 SCOTT HURLEY MD [address] [facility],[place] [address], [place], [address] , [place] - [facility] 13:10:10 Bleeding from nose 015839268 Active 025 SCOTT HURLEY MD [address], [address] , [place] - [facility] 13:10:49 Problem Notes None recorded. Procedures Surgical History Date Name Laterality Status Provider Name and Address Organization Details Recorded Time 12/23/2024 NasalEndos copy_DP completed SCOTT HURLEY MD [address] [place] [address], [place], [phone], [place] [facility] 12/23/2024 13:10:00 Imaging Results None recorded. Procedure Notes None recorded. Medical Equipment None Reported. Allergies No known drug allergies Medications Name Sig Start Date Stop Date Status Note LastModified by Organization Details LastModified Time trazodone 50 mg tablet TAKE 1 TABLET BY MOUTH EVERY DAY AT BEDTIME NEEDED 12/23 completed Not Available Not Available Not Available albuterol sulfate HFA 90 mcg/actuat ion aerosol inhaler TAKE 2 PUFF INHALED EVERY 6 HOURS NEEDED FOR SHORTNESS OF BREATH OR WHEEZING FOR 30 DAYS 12/23 completed Not Available Not Available Not Available vit D3 50 mcg-levome folate calcium 15 mg-zinc 25 mg-theanin e capsule Take by oral route. active Not Available Not Available No t Available Vitals Date Recorded Body height Body mass index (BMI) Body weight Provider Name and Address Organization Details Last Updated DateTime 12/23/2024 167.64 cm 21.8 kg/m2 59568.97 g ANTHONY CUNNING[place]AM [place] [facility] 12/23/2024 12:58:30 Social History None recorded. Functional Status None recorded. Mental Status None recorded. Family History Nothing Reported. Medical History No medical history recorded. Past Encounters Encounter ID Performer Location Encounter Start Date Encounter Closed Date Diagnosis/Indication Diagnosis SNOMED-CT Code Diagnosis ICD10 Code Diagnosis Note [id number] SCOTT HURLEY MD [facility] [address] [place] [address] 12/23/2024 12:50:15 12/23/2024 13:14:25 Polyp of nasal cavity 598070755 J33.0 Bleeding from nose 33543 6005 R04.0 Health Concerns Section Related Observation LastModified by Organization Detai ls LastModified Time None Recorded Concern Status LastModified by Organization Details LastModified Time None Recorded Advance Directives Directive None Recorded Payers Insurance Date Sequence Insurance Name Policy Number Policy Turner Covered Member ID Turner Member ID Guarantor Name 01/11/2025 1 [facility] PL[facility] (HMO) [id number] [facility] [id number] 1 [facility] 01/11/2025 1 [facility] [employer] - DIRECT CONNECTORCARE TYPE I (HMO) [id number] [facility] [id number] 1 [facility] Notes Date Note Type Note Provider Name and Address Organization Details Recorded Time 12/23/2024 text/html IPAD - Mandarinnasal lesion noted by PCP last yeargets alternating nasal congestion when lays downright epistaxis most recent November a few drops when bumped nose work - [employer] Claims [employer] in [employer] in [place] SCOTT HURLEY MD [address] [place] [address], [phone] [place] [facility] 12/23/2024 13:15:56
== END 2025-02-26 09:29 | disposition home or self-care (01) ==
PROVIDERS: PCP Internal Medicine; Visit Provider Physician Assistant
DX: J30.2 Other seasonal allergic rhinitis (principal); Z13.9 Encounter for screening, unspecified

== ENCOUNTER → 2025-02-26 08:19 | Outpatient (BNVA) | payer OTHER, SELFPAY | PROVIDERS: PCP Internal Medicine; Visit Provider Physician Assistant | DX: J30.2 Other seasonal allergic rhinitis (principal) | CPT/HCPCS: 87880 ==